=== PATIENT | male | born 2000 | race Caucasian/White ===

== ENCOUNTER 2024-01-30 19:00 | Emergency (ER) | payer OTHER, SELFPAY ==
[2024-01-30 19:03] VITALS: BP 146/63
--- NOTE | 2024-01-30 19:43 | ED.MUSCINJ ---
HPI-Injury
General
Chief Complaint: Musculo-Skeletal Complaint
Source: patient
Time Seen by Provider: 01/30/24 19:22
History of Present Illness-Injury
Initial Injury comments:
23yo right hand dominant male presenting with his father for evaluation of a right little finger injury that was sustained yesterday while playing soccer. Patient collided with another player and jammed his finger. He is presenting with pain and
swelling primarily over the DIP joint. No paresthesias. No prior injuries to the right finger.
Past History
Past History
ED Past Medical History: None
ED Past Surgical History: None
Social History
Tobacco: Non-smoker
Drug: Marijuana
Personal: Single
Living: with family
Phy Exam
General Physical Exam
General Presentation: well appearing and no apparent distress
General age: appears stated age
General Skin: warm and dry
General Habitus: normal
General Mental: alert
ENT Exam
ENT Exam: normocephalic
[place] Coma Scale
Eye Opening: Spontaneous
Verbal Response: Oriented
Motor Response: Obeys Commands
GCS Total Score: 15
Musculoskeletal Exam
Musculoskeletal Exam: other (Right little finger: Soft tissue swelling and ecchymosis noted over DIP joint with associated tenderness. ROM of DIP, PIP, and MCP joint intact. Cap refill and sensation intact at distal fingertip.)
Skin Exam
Skin Exam: warm/dry
Psychiatric Exam
Psychiatric Exam: normal mood/affect
Injury Course
Orders/Labs/Results
Orders:
Orders
01/30/24 19:04
CR Hand - Right Min 3 Views Urgent
Comment:
Reason For Exam: injury
01/30/24 19:27
Aluminium Finger Splint Right ONCE
MDM/Problems Addressed
Differential Diagnosis Includes:
23yoM here with R little finger pain after an injury yesterday. Swelling and ecchymosis noted on exam. Digit is neurovascularly intact. Differential diagnosis includes but is not limited to: fracture, sprain, jammed finger
X-rays of R little finger obtained. Imaging shows an avulsion fracture of the distal phalanx. I offered to attempt reduction to improve alignment which patient declines. He was placed in a finger splint. Advised f/u with hand surgery for further
care. He was discharged in stable condition.
*Critical Care Note
Total Time (30-74mins, 75-104mins- exclusive of procedures): Not Applicable
ED Attending Note
-
Portions of this chart may have been created with voice recognition software.� Occasional wrong word or��sound alike� substitutions may have occurred due to the inherent limitations of voice recognition software.
Discharge Plan
Departure
Patient Disposition: Home (Routine Discharge)
Date of Disposition: 01/30/24
Time of Disposition: 19:44
Patient with high blood pressure during this ER visit?: Yes
Discharge Problem:
Avulsion fracture of distal phalanx of finger
Instructions: Finger Fracture ED
Prescriptions:
No Action
lodoxamide tromethamine [Alomide] 10 ML drops
1 drp OP BID Qty: 10 0RF
Referrals:
Miguel Nails MD [Active] -
Activity Restrictions/Additional Instructions:
Wear finger splint for immobilization. Take Tylenol and ibuprofen for pain.
Please follow-up with hand surgery.
Interventions
Interventions:
*Risk Screen - Suicide Last Done: 01/30/24 20:43
*General Assessment Last Done: 01/30/24 19:03
*Neglect/Abuse Screening Last Done: 01/30/24 20:43
*ED COVID-19 Vaccine History Last Done: 01/30/24 19:27
*Nursing Disposition Last Done: 01/30/24 20:43
ED-Musculoskeletal Assessment Last Done: 01/30/24 19:27
Discharge Date and Time
Discharge Date/Time: 01/30/24 20:44
Print Language: [id number]
== END 2024-01-30 20:44 | disposition home or self-care (01) ==
LOC: EMR 19:00
PROVIDERS: EMERGENCY PHYSICIAN Emergency Medicine; FAMILY PHYSICIAN Nurse Practitioner Family
DX: S62.636A Displaced fracture of distal phalanx of right little finger, initial encounter for closed fracture (principal); W51.XXXA Accidental striking against or bumped into by another person, initial encounter; Y93.66 Activity, soccer; R03.0 Elevated blood-pressure reading, without diagnosis of hypertension
CPT/HCPCS: 99283; 29130; 73130